=== PATIENT | male | born 1965 | race Caucasian/White ===

== ENCOUNTER 2020-09-19 11:22 | Outpatient (REF) | payer BC, SELFPAY ==
--- NOTE | 2020-09-19 11:31 | XR_ITS ---
EXAMINATION: XR CALCANEUS, RIGHT XR SHOULDER, RIGHT CLINICAL INFORMATION: Right shoulder pain. COMPARISON: None TECHNIQUE: 4 views right shoulder. 2 views right calcaneus. FINDINGS: RIGHT CALCANEUS: There is a small to moderate size calcaneal heel and a large right retrocalcaneal enthesophyte. There is dystrophic linear calcification along the posterior Achilles tendon. The ankle mortise and subtalar joints are normal. RIGHT SHOULDER: There is mild loss of AC joint space with periarticular spurring. There is lateral acromial spurring. Minimal inferior glenohumeral joints space periarticular spurring is seen. There is no acute fracture, loose bodies or soft tissue abnormality. XR/XR shoulder RT min 2V IMPRESSION: 1. Small calcaneal heel and moderate to large retrocalcaneal enthesophytes. Linear calcification along the posterior Achilles tendon likely from old injury. No acute fracture or dislocation seen. 2. Degenerative arthritic changes right AC joint and right glenohumeral joint space. No acute fracture or loose body seen.
--- NOTE | 2020-09-19 11:31 | XR_ITS ---
EXAMINATION: XR CALCANEUS, RIGHT XR SHOULDER, RIGHT CLINICAL INFORMATION: Right shoulder pain. COMPARISON: None TECHNIQUE: 4 views right shoulder. 2 views right calcaneus. FINDINGS: RIGHT CALCANEUS: There is a small to moderate size calcaneal heel and a large right retrocalcaneal enthesophyte. There is dystrophic linear calcification along the posterior Achilles tendon. The ankle mortise and subtalar joints are normal. RIGHT SHOULDER: There is mild loss of AC joint space with periarticular spurring. There is lateral acromial spurring. Minimal inferior glenohumeral joints space periarticular spurring is seen. There is no acute fracture, loose bodies or soft tissue abnormality. XR/XR calcaneus RT min 2V IMPRESSION: 1. Small calcaneal heel and moderate to large retrocalcaneal enthesophytes. Linear calcification along the posterior Achilles tendon likely from old injury. No acute fracture or dislocation seen. 2. Degenerative arthritic changes right AC joint and right glenohumeral joint space. No acute fracture or loose body seen.
== END 2020-09-19 11:23 | disposition home or self-care (01) ==
LOC: HO.XRAY 11:22
PROVIDERS: PCP Internal Medicine; Visit Provider Internal Medicine
DX: M25.511 Pain in right shoulder (principal); M79.671 Pain in right foot
CPT/HCPCS: 73030; 73650

== ENCOUNTER 2021-08-08 16:56 | Outpatient (REF) | payer BC, SELFPAY ==
[2021-08-08 17:10] LABS: MANUAL DIFF FLAG NO
[2021-08-08 17:16] LABS: Basophils Absolute Auto 0.1 X10*3/uL (0.0-0.2); Basophils Percent Auto 0.7 % (0-2); Eosinophils Absolute Auto 0.7 X10*3/uL (0.0-0.4); Eosinophils Percent Auto 8.9 % (0-4); Hematocrit 42.9 % (42.0-52.0); Hemoglobin 14.5 g/dl (14.0-18.0); Imm Gran Abs Auto 0.03 X10*3/uL (0.00-0.03); Imm Gran Pct Auto 0.4 % (0.0-0.4); Lymphocytes Absolute Auto 1.6 X10*3/uL (1.2-4.9); Lymphocytes Percent Auto 21.4 % (20-40); Mean Corpuscular HGB Conc 33.8 g/dl (31.0-36.0); Mean Corpuscular Hemoglobin 27.9 pg (27.0-33.0); Mean Corpuscular Volume 82.7 fL (80.0-98.0); Mean Platelet Volume 10.1 fL (9.4-12.4); Monocytes Absolute Auto 0.8 X10*3/uL (0.1-1.2); Monocytes Percent Auto 10.2 % (2-11); Neutrophils Absolute Auto 4.5 x10*3/uL (2.0-8.3); Neutrophils Percent Auto 58.4 % (45-73); Platelet Count 194 X10*3/uL (160-400); Red Blood Count 5.19 X10*6/uL (4.60-5.80); Red Cell Distribution Width 12.9 % (11.0-16.0); White Blood Count 7.7 X10*3/uL (4.8-10.8)
[2021-08-08 17:46] LABS: Anion Gap 12 (12-20); Blood Urea Nitrogen 16 mg/dL (9-16); Calcium 9.1 mg/dL (8.4-10.2); Carbon Dioxide 27 mmol/L (22-29); Chloride 105 mmol/L (96-108); Estimated Glomerular Filt Rate > 60; Glucose Random 77 mg/dL (60-115); Potassium 4.5 mmol/L (3.3-5.1); Sodium 139 mmol/L (135-145)
== END 2021-08-08 16:57 | disposition home or self-care (01) ==
LOC: HO.LAB 16:56
PROVIDERS: PCP Internal Medicine; Visit Provider Internal Medicine
DX: J33.9 Nasal polyp, unspecified (principal); R06.2 Wheezing
CPT/HCPCS: 36415; 80048; 85025

== ENCOUNTER 2022-07-29 11:50 | Outpatient (REF) | payer BC, SELFPAY ==
--- NOTE | ~2022-07-29 | XR_ITS ---
EXAMINATION: XR CHEST CLINICAL INFORMATION: Cough COMPARISON: Previous chest x-ray from 2019 TECHNIQUE: 2 views of the chest were obtained. FINDINGS: No significant abnormality is noted involving the heart, lungs, mediastinum, bony thorax or soft tissues. There are degenerative changes of the spine. XR/XR chest 2V IMPRESSION: No evidence for acute disease in the chest.
[2022-07-29 13:31] LABS: MANUAL DIFF FLAG NO
[2022-07-29 13:35] LABS: Basophils Percent Auto 0.6 % (0-2); Eosinophils Absolute Auto 0.7 X10*3/uL (0.0-0.4); Eosinophils Percent Auto 10.5 % (0-4); Imm Gran Abs Auto 0.03 X10*3/uL (0.00-0.03); Imm Gran Pct Auto 0.5 % (0.0-0.4); Lymphocytes Absolute Auto 0.9 X10*3/uL (1.2-4.9); Lymphocytes Percent Auto 13.3 % (20-40); Mean Corpuscular Volume 82.2 fL (80.0-98.0); Mean Platelet Volume 10.5 fL (9.4-12.4); Monocytes Absolute Auto 0.7 X10*3/uL (0.1-1.2); Neutrophils Absolute Auto 4.1 x10*3/uL (2.0-8.3); Neutrophils Percent Auto 64.1 % (45-73); Platelet Count 191 X10*3/uL (160-400); Red Blood Count 5.72 X10*6/uL (4.60-5.80); Red Cell Distribution Width 13.1 % (11.0-16.0); White Blood Count 6.5 X10*3/uL (4.8-10.8)
[2022-07-29 13:44] LABS: Alanine Aminotransferase 20 U/L (0-40); Albumin Level 4.7 g/dL (3.5-5.0); Alkaline Phosphatase 73 U/L (39-117); Anion Gap 15 (12-20); Aspartate Amino Transferase 16 U/L (5-37); Bilirubin Total 1.2 mg/dL (0.0-1.0); Blood Urea Nitrogen 13 mg/dL (9-16); Calcium 9.5 mg/dL (8.4-10.2); Carbon Dioxide 27 mmol/L (22-29); Chloride 101 mmol/L (96-108); Cholesterol 175 mg/dL; Estimated Glomerular Filt Rate > 60; Glucose Fasting 87 mg/dL (60-99); HDL Cholesterol 58 mg/dL; LDL Cholesterol Calculated 105 mg/dl; Potassium 4.6 mmol/L (3.3-5.1); Sodium 138 mmol/L (135-145); Triglycerides 62 mg/dL
[2022-07-29 14:06] LABS: Prostate Specific Antigen Scr 1.24 ng/mL (<0.05-4.0)
== END 2022-07-29 11:51 | disposition home or self-care (01) ==
LOC: HO.10HDL 11:50
PROVIDERS: Visit Provider Internal Medicine
DX: Z12.5 Encounter for screening for malignant neoplasm of prostate (principal); R05.9 Cough, unspecified; R06.2 Wheezing; R35.1 Nocturia
CPT/HCPCS: 36415; 71046; 80053; 80061; 84153; 85025

== ENCOUNTER 2022-08-23 10:35 | Outpatient (REF) | payer BC, SELFPAY ==
--- NOTE | 2022-08-23 | PFT_ITS ---
FLOWS: FEV1 75% of predicted at 3.07 L. FVC 80% of predicted at 4.30 L. FEV1 to FVC ratio of 0.71. Positive bronchodilator response. LUNG VOLUMES: Total lung capacity 77% of predicted at 5.91 L. Residual volume 90% of predicted at 2.16 L. Slow vital capacity 71% of predicted at 3.76 L. Expiratory reserve volume 45% of predicted at 0.74 L. Diffusion capacity is normal. IMPRESSION: Combined moderate obstructive and moderate restrictive ventilatory defect with positive bronchodilator response. Decreased expiratory reserve volume suggests extrathoracic restriction likely secondary to abdominal obesity. Douglas Lincoln MD AP/MODL / [id number]
== END 2022-08-23 10:36 | disposition home or self-care (01) ==
LOC: HO.RESP 10:35
PROVIDERS: PCP Internal Medicine; Visit Provider Internal Medicine
DX: R06.2 Wheezing (principal)
CPT/HCPCS: 94060; 94727; 94729

== ENCOUNTER 2023-03-07 12:26 | Day surgery (SDC) | payer BC, SELFPAY ==
--- NOTE | 2023-03-06 12:49 | HO.ANESPROP2 ---
Documented by User: Linh Kirk NP 03/06/23 12:51 HPI - Anesthesia Eval Consult details Narrative: 57yo M for Colonoscopy [facility] Past Medical History Medical History (Updated 03/06/23 @ 12:10 by Debora Vasquez RN) Nasal polyp Plantar fasciitis Tennis elbow Surgical History Surgical History (Updated 03/06/23 @ 12:10 by Debora Vasquez RN) H/O colonoscopy H/O elbow surgery H/O knee surgery H/O shoulder surgery Social History Social History Patient Tobacco Use Status: Current everyday Tobacco user Tobacco use type: Smokeless Tobacco Patient Interested in Nicotine Replacement: No Are you DNR?: No Advance Directives: No Advance Directives Information Provided: Yes Nutrition Risks: No Nutritional Risk Meds Allergies Allergy/AdvReac Type Severity Reaction Status Date / Time No Known Allergies Allergy Verified 03/06/23 12:08 Home Medications Medication Instructions Recorded Confirmed Last Taken Type budesonide-formoterol HFA 80 1 puff inhalation BID 03/06/23 03/06/23 Unknown History mcg-4.5 mcg/actuation aerosol inhaler (Symbicort) Exam Exam Date and Time: March 06, 2023 1249 Narrative Narrative: PFT 08/2022 FLOWS:? FEV1 75% of predicted at 3.07 L. ? FVC 80% of predicted at 4.30 L. ? FEV1 to FVC ratio of 0.71. ? Positive bronchodilator response. ?? LUNG VOLUMES:? Total lung capacity 77% of predicted at 5.91 L. ? Residual volume 90% of predicted at 2.16 L. ? Slow vital capacity 71% of predicted at 3.76 L. ? Expiratory reserve volume 45% of predicted at 0.74 L. ? Diffusion capacity is normal. ?? IMPRESSION:? Combined moderate obstructive and moderate restrictive ventilatory defect with positive bronchodilator response.? Decreased expiratory reserve volume suggests extrathoracic restriction likely secondary to abdominal obesity. Assessment and Plan Assessment Anesthesia Assessment: Chart Reviewed Documented by User: Rickey Mendosa MD 03/07/23 13:57 [facility] Past Medical History Medical History (Updated 03/06/23 @ 12:10 by Debora Vasquez RN) Nasal polyp Plantar fasciitis Tennis elbow Family History Family history of problems with anesthesia: No Surgical History Surgical History (Updated 03/06/23 @ 12:10 by Debora Vasquez RN) H/O colonoscopy H/O elbow surgery H/O knee surgery H/O shoulder surgery History of Problems with Anesthesia: No Social History Social History Patient Tobacco Use Status: Current everyday Tobacco user Tobacco use type: Smokeless Tobacco Patient Interested in Nicotine Replacement: No Are you DNR?: No Advance Directives: No Advance Directives Information Provided: Yes Nutrition Risks: No Nutritional Risk Meds Allergies Allergy/AdvReac Type Severity Reaction Status Date / Time No Known Allergies Allergy Verified 03/06/23 12:08 Home Medications Medication Instructions Recorded Confirmed Last Taken Type budesonide-formoterol HFA 80 1 puff inhalation BID 03/06/23 03/06/23 Unknown History mcg-4.5 mcg/actuation aerosol inhaler (Symbicort) Exam Airway Mallampati Class: III TM Dist: >3cm Neck ROM: Full Assessment and Plan Assessment Anesthesia Assessment: Anesthesia Plan Discussed Final Anesthetic Review Family History of Problems with Anesthesia: No History of Problems with Anesthesia: No NPO: Yes ASA Class: II Final Preanesthetic Review: No Changes in Pt Med Stat, Meds/Allgs Chart Reviewed, Consent Obtained/Reviewed and Anes Risks/Benef Reviewed Patient Risk: Low Procedure Risk: Low Anesthetic Plan Anesthetic Plan: MAC: Disposition: Standard PACU
[2023-03-07] MEDS: Lactated Ringers 1,000 ML 100 ML IVCONT (13:07)
[2023-03-07 13:27] VITALS: BMI 29.7
[2023-03-07 15:12] VITALS: BP 134/71; PULSE 68; RESP 16; TEMP 36.2; O2SAT 97
--- NOTE | 2023-03-07 15:13 | PM.OP ---
Brief Operative Note Date of Service: 03/07/23 Pre-op diagnosis: Screening Post-op diagnosis: other (Colon polyp) Procedure: Colonoscopy to the cecum and TI with bx/removal of polyp Surgeon: Blas Wilburn Anesthesia: MAC Was an Housing And Residence Life Director used for this Procedure?: No Estimated blood loss (mL): 2.0 Pathology: other (A. Polyp at 50cm) Condition: stable Disposition: PACU
[2023-03-07 15:32] VITALS: BP 115/86; PULSE 68; RESP 17; TEMP 36.7; O2SAT 98
--- NOTE | 2023-03-08 00:01 | OP_ITS ---
DATE OF SERVICE: 03/07/2023 SURGEON: Blas Wilburn MD INDICATIONS: The patient presents for evaluation of personal history of tubular adenoma of the colon, family history of colon cancer, and need for colorectal cancer screening. Full consent has been obtained from him for this, including risks of bleeding and perforation. PREOPERATIVE DIAGNOSIS: POSTOPERATIVE DIAGNOSIS: PROCEDURE PERFORMED: Colonoscopy to cecum and terminal ileum with biopsy and removal of polyp. ESTIMATED BLOOD LOSS: COMPLICATIONS: ANESTHESIA: Monitored anesthesia care. ASSISTANTS: SPECIMENS: PREOPERATIVE DIAGNOSES: Personal history of tubular adenoma of the colon, colorectal cancer screening, family history of colon cancer. POSTOPERATIVE DIAGNOSES: Personal history of tubular adenoma of the colon, colorectal cancer screening, family history of colon cancer, colon polyp, diverticulosis, and internal hemorrhoids. DESCRIPTION OF PROCEDURE: The patient was placed in the left lateral decubitus position. The digital rectal exam revealed no abnormalities. The Olympus video pediatric colonoscope was entered into the rectum and advanced easily to the cecum. Once in the cecum, I did identify normal-appearing cecal pouch with appendiceal orifice and a normal-appearing ileocecal valve. The terminal ileum was cannulated and appeared normal. The scope was withdrawn back in the colon. The entire cecum and ileocecal valve appeared normal. The scope was slowly withdrawn assessing all mucosal surfaces carefully. Preparation was excellent. At 50 cm, there was an approximately 3 or 4 mm polyp, which was biopsied and completely removed with cold biopsy forceps. I did not visualize any other polyps, colitis, nor angiodysplasia. There was a mild amount of sigmoid diverticulosis. In the rectum, scope was retroflexed visualizing internal hemorrhoids, but no other pathology. The rectal mucosa appeared normal. The scope was straightened and withdrawn from the patient. He tolerated the procedure well and was returned to the recovery area in stable condition. IMPRESSION: 1. Small colon polyp. 2. Diverticulosis. 3. Internal hemorrhoids. PLAN: The results of the biopsy will be checked. I would recommend a repeat colonoscopy in 5 years for further screening. He will otherwise see me on a p.r.n. basis. MD JAMEL Dhillon/CLARKE / [id number]
== END 2023-03-07 15:36 | disposition home or self-care (01) ==
PROVIDERS: PCP Internal Medicine; Visit Provider Internal Medicine
PROC: 0DJD8ZZ Inspection of Lower Intestinal Tract, Via Natural or Artificial Opening Endoscopic (ICD-10-PCS; CPT 45378; principal; 2023-03-07 15:10)
DX: Z12.11 Encounter for screening for malignant neoplasm of colon (principal); Z86.010 Personal history of colon polyps; Z80.0 Family history of malignant neoplasm of digestive organs; D12.5 Benign neoplasm of sigmoid colon; K57.30 Diverticulosis of large intestine without perforation or abscess without bleeding; K64.8 Other hemorrhoids; J45.909 Unspecified asthma, uncomplicated; M72.2 Plantar fascial fibromatosis; M77.12 Lateral epicondylitis, left elbow; Z79.51 Long term (current) use of inhaled steroids
CPT/HCPCS: 45380; 88305

== ENCOUNTER 2023-08-22 16:16 | Outpatient (REF) | payer BC, SELFPAY ==
--- NOTE | ~2023-08-22 | XR_ITS ---
EXAMINATION: XR KNEE, RIGHT CLINICAL INFORMATION: Pain. COMPARISON: None. TECHNIQUE: AP, lateral, tunnel, and sunrise views of the right knee. FINDINGS: No fracture or joint effusion. Alignment is anatomic. Joint spaces are maintained. No abnormal soft tissue calcification. A 1.5 x 0.7 cm exostosis is seen arising from the medial aspect of the proximal tibial metaphysis. XR/XR knee RT 4V IMPRESSION: 1. No fracture, dislocation or joint effusion is seen. 2. A small exostosis is seen arising from the medial aspect of the proximal tibial metaphysis. EXAMINATION: XR KNEE, LEFT CLINICAL INFORMATION: Pain COMPARISON: None available. TECHNIQUE: Four views of the left knee. FINDINGS: Bony alignment and mineralization are normal. No fracture or dislocation is seen. Alignment is anatomic. There is moderate asymmetric narrowing of the medial joint space. The lateral and patellofemoral joint space compartments are well-maintained. A 2.6 x 0.6 cm exostosis arises from the medial aspect of the proximal tibial metaphysis. No focal soft tissue swelling, gas or foreign body is seen. There are atherosclerotic calcifications. IMPRESSION: 1. No fracture, dislocation or joint effusion is seen. 2. A small exostosis is seen arising from the proximal tibial metaphysis.
--- NOTE | ~2023-08-22 | XR_ITS ---
EXAMINATION: XR KNEE, RIGHT CLINICAL INFORMATION: Pain. COMPARISON: None. TECHNIQUE: AP, lateral, tunnel, and sunrise views of the right knee. FINDINGS: No fracture or joint effusion. Alignment is anatomic. Joint spaces are maintained. No abnormal soft tissue calcification. A 1.5 x 0.7 cm exostosis is seen arising from the medial aspect of the proximal tibial metaphysis. XR/XR knee LT 4V IMPRESSION: 1. No fracture, dislocation or joint effusion is seen. 2. A small exostosis is seen arising from the medial aspect of the proximal tibial metaphysis. EXAMINATION: XR KNEE, LEFT CLINICAL INFORMATION: Pain COMPARISON: None available. TECHNIQUE: Four views of the left knee. FINDINGS: Bony alignment and mineralization are normal. No fracture or dislocation is seen. Alignment is anatomic. There is moderate asymmetric narrowing of the medial joint space. The lateral and patellofemoral joint space compartments are well-maintained. A 2.6 x 0.6 cm exostosis arises from the medial aspect of the proximal tibial metaphysis. No focal soft tissue swelling, gas or foreign body is seen. There are atherosclerotic calcifications. IMPRESSION: 1. No fracture, dislocation or joint effusion is seen. 2. A small exostosis is seen arising from the proximal tibial metaphysis.
== END 2023-08-22 16:17 | disposition home or self-care (01) ==
LOC: HO.XRAY 16:16
PROVIDERS: PCP Internal Medicine; Visit Provider Internal Medicine
DX: M25.562 Pain in left knee (principal); M25.561 Pain in right knee
CPT/HCPCS: 73564

== ENCOUNTER 2024-07-08 15:59 | Outpatient (REF) | payer BC, SELFPAY ==
--- NOTE | ~2024-07-08 | XR_ITS ---
EXAMINATION: XR CHEST CLINICAL INFORMATION: Cough, wheezing COMPARISON: Chest radiograph 07/29/2022 TECHNIQUE: 2 views of the chest were obtained. FINDINGS: The lungs are well-expanded. No focal consolidation. No pleural effusions or pneumothorax. The cardiomediastinal silhouette is within normal limits. No acute osseous abnormality. XR/XR chest 2V IMPRESSION: No acute pulmonary disease. Electronically signed by: Durga Wilkes MD 07/09/2024 08:25 AM EDT
[2024-07-08 16:13] LABS: MANUAL DIFF FLAG NO
[2024-07-08 17:09] LABS: Basophils Percent Auto 0.5 % (0-2); Eosinophils Absolute Auto 0.5 X10*3/uL (0.0-0.4); Eosinophils Percent Auto 5.5 % (0-4); Hematocrit 44.3 % (42.0-52.0); Hemoglobin 14.7 g/dl (14.0-18.0); Imm Gran Abs Auto 0.05 X10*3/uL (0.00-0.03); Imm Gran Pct Auto 0.6 % (0.0-0.4); Lymphocytes Absolute Auto 1.4 X10*3/uL (1.2-4.9); Lymphocytes Percent Auto 16.6 % (20-40); Mean Corpuscular HGB Conc 33.2 g/dl (31.0-36.0); Mean Corpuscular Hemoglobin 27.4 pg (27.0-33.0); Mean Corpuscular Volume 82.6 fL (80.0-98.0); Mean Platelet Volume 10.2 fL (9.4-12.4); Monocytes Absolute Auto 0.8 X10*3/uL (0.1-1.2); Monocytes Percent Auto 9.4 % (2-11); Neutrophils Absolute Auto 5.5 x10*3/uL (2.0-8.3); Neutrophils Percent Auto 67.4 % (45-73); Platelet Count 204 X10*3/uL (160-400); Red Blood Count 5.36 X10*6/uL (4.60-5.80); Red Cell Distribution Width 13.8 % (11.0-16.0); White Blood Count 8.1 X10*3/uL (4.8-10.8)
[2024-07-08 17:38] LABS: Alanine Aminotransferase 16 U/L (0-40); Albumin Level 4.2 g/dL (3.5-5.0); Alkaline Phosphatase 67 U/L (39-117); Anion Gap 13 (12-20); Aspartate Amino Transferase 15 U/L (5-37); Bilirubin Total 0.6 mg/dL (0.0-1.0); Blood Urea Nitrogen 14 mg/dL (9-16); C Reactive Protein 0.93 mg/dL (< or = 0.50); Calcium 9.6 mg/dL (8.4-10.2); Carbon Dioxide 29 mmol/L (22-29); Chloride 105 mmol/L (96-108); Estimated Glomerular Filt Rate > 60; Glucose Random 72 mg/dL (60-115); Potassium 4.3 mmol/L (3.3-5.1); Sodium 143 mmol/L (135-145); Total Protein 6.6 g/dL (6.5-8.0)
[2024-07-09 15:43] LABS: Alpha 1 Anti-trypsin 136 mg/dL (83-199)
== END 2024-07-08 16:00 | disposition home or self-care (01) ==
LOC: HO.LAB 15:59
PROVIDERS: PCP Internal Medicine; Visit Provider Internal Medicine
DX: R05.9 Cough, unspecified (principal); R06.2 Wheezing
CPT/HCPCS: 36415; 71046; 80053; 82103; 82550; 85025; 86140

== ENCOUNTER 2024-10-18 15:38 | Outpatient (REF) | payer BC, SELFPAY ==
[2024-10-18 15:53] LABS: MANUAL DIFF FLAG NO
[2024-10-18 16:02] LABS: Basophils Absolute Auto 0.1 X10*3/uL (0.0-0.2); Basophils Percent Auto 1.2 % (0-2); Eosinophils Percent Auto 10.3 % (0-4); Hematocrit 48.3 % (42.0-52.0); Hemoglobin 16.1 g/dl (14.0-18.0); Imm Gran Abs Auto 0.03 X10*3/uL (0.00-0.03); Imm Gran Pct Auto 0.3 % (0.0-0.4); Lymphocytes Absolute Auto 1.4 X10*3/uL (1.2-4.9); Lymphocytes Percent Auto 14.1 % (20-40); Mean Corpuscular HGB Conc 33.3 g/dl (31.0-36.0); Mean Corpuscular Hemoglobin 27.7 pg (27.0-33.0); Mean Corpuscular Volume 83.1 fL (80.0-98.0); Mean Platelet Volume 10.2 fL (9.4-12.4); Monocytes Absolute Auto 0.8 X10*3/uL (0.1-1.2); Monocytes Percent Auto 8.1 % (2-11); Neutrophils Absolute Auto 6.6 x10*3/uL (2.0-8.3); Platelet Count 227 X10*3/uL (160-400); Red Blood Count 5.81 X10*6/uL (4.60-5.80); Red Cell Distribution Width 13.2 % (11.0-16.0)
[2024-10-18 16:27] LABS: Anion Gap 10 (12-20); Blood Urea Nitrogen 19 mg/dL (9-16); Calcium 9.2 mg/dL (8.4-10.2); Carbon Dioxide 24 mmol/L (22-29); Chloride 110 mmol/L (96-108); Estimated Glomerular Filt Rate > 60; Glucose Random 72 mg/dL (60-115); Potassium 4.9 mmol/L (3.3-5.1); Sodium 139 mmol/L (135-145)
[2024-10-18 16:45] LABS: PSA,Total (Free>4and<10) 2.25 ng/mL (0.00-4.00)
--- OUTSIDE RECORDS SUMMARY | 2024-10-18 19:36 | XMS_ITS | Patient Health Record ---
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 Name Role Phone Jordin Pope MD Primary Care Provider Blas Lainez Unavailable [phone] ALLERGIES No Known Allergies REASON FOR REFERRAL No Information MEDICATIONS Medication SIG (Take, Route, Frequency, Duration) Notes Start Date End Date Status Symbicort 80-4.5 MCG/ACT Inhalation for 30 Active SOCIAL HISTORY Sex Assigned At : Social History Observation Description Sex Assigned At Unknown PROBLEMS Problem Type ICD Code Onset Dates Problem Status W/U Status Risk SNOMED Code Notes Problem Encounter for screening for malignant neoplasm of colon (Z12.11) Active confirmed 887496209 Problem Encounter for screening for malignant neoplasm of rectum (Z12.12) Active confirmed Screening fo r malignant neoplasm of rectum (029340224) Problem History of adenomatous polyp of colon (Z86.010) Active confirmed 143620232 Problem Family history of colon cancer (Z80.0) Active confirmed 332557000 Problem Preprocedural examination (Z01.818) Active confirmed 42547336 Problem Colon cancer screening (Z12.11) Active confirmed 477327439 Problem Pre-procedural examination (Z01.818) Active confirmed 692435697779960 Problem Diverticulosis of large intestine without perforation or abscess without bleeding (K57.30) Active confirmed Diverticul ar disease of colon (714247792) PLAN OF TREATMENT Future Test Test Name Order Date COLONOSCOPY 08/08/2016 COLONOSCOPY 01/28/2023 Insurance Providers Payer Name Payer Address Payer Phone Subscriber Number Group Number Insured Name Patient Relationship to Insured Coverage Start Date Coverage End Date [facility] [address] [place] [address] [phone] [id number] Self - patient is the insured MEDICAL (GENERAL) HISTORY Medical History History ICD Code Colonoscopy 12-21-2010---1 sma ll tubular adenoma removed, mild sigmoid diverticulosis and small internal hemorrhoids Denies MD,DM,CVA,Lung disease,renal dise ase Plantar fasciitis Tennis elbow --left--cortisone injectio n Colonoscopy 11/2016 with 2 small tubular adenomas removed Mild asthma and/or seasonal allergies Surgical History Surgery Date(Month/Year) Orthopedic--Right elbow, both shoulders. both knees Nasal polyps
== END 2024-10-18 15:39 | disposition home or self-care (01) ==
LOC: HO.LAB 15:38
PROVIDERS: PCP Internal Medicine; Visit Provider Internal Medicine
DX: J45.909 Unspecified asthma, uncomplicated (principal); N40.0 Benign prostatic hyperplasia without lower urinary tract symptoms; Z12.5 Encounter for screening for malignant neoplasm of prostate
CPT/HCPCS: 36415; 80048; 84153; 85025

== ENCOUNTER 2024-11-18 15:17 | Outpatient (AMB) | payer BC, SELFPAY ==
[2024-11-18 15:25] VITALS: BP 120/72; PULSE 100; O2SAT 95; BMI 32.1
--- NOTE | 2024-11-18 15:25 | A.OFFVIS_ITS ---
Vital Signs 11/18/24 15:25 Height 6 ft 1 in Weight 243 lb 9.773 oz BMI 32.1 BP 120/72 Blood Pressure Location Lt brachial Position Sitting Pulse 100 Pulse Source Pulse Oximeter Pulse Oximetry (%) 95 Oxygen Delivery Method Room Air Intake Visit Reasons: asthma Intake Note: pt is here as a new patient, a lot of coughing with phelgm difficulty breathing with exertion, and eating causes pressure in the chest area, all happening for a year and half. Sorting And Folding Supervisor Required: No Allergies No Known Allergies Allergy (Verified 11/18/24 15:33) Medication List - Last Reconciled 11/18/24 by Luis Henson MD albuterol sulfate 90 mcg/actuation (Ventolin HFA) 2 puffs inhalation Q4-6H PRN fluticasone propion-salmeterol 250-50 mcg/dose (Wixela Inhub) 1 inh inhalation BID tamsulosin 0.4 mg PO BEDTIME Do you need a note to return to daycare/school/sports/work: No HPI HPI asthma: Details: THIS 59 YEARS OLD GENTLEMAN IS HERE FOR THE 1ST TIME WITH HISTORY OF BRONCHIAL ASTHMA FOR THE LAST 2 YEARS OR SO. HE HAD PRESENTED ABOUT 2 YEARS AGO WITH SYMPTOMS OF TIGHT FEELING IN THE CHEST ON WALKING AND AFTER EATING. HAD A PULMONARY FUNCTION TEST ON 08/23/2022, WHICH SHOWED SIGNIFICANT OBSTRUCTIVE AIRWAY DISORDER BUT WITH ALMOST COMPLETE REVERSIBILITY AFTER BRONCHODILATOR THERAPY. THIS WAS CONSISTENT WITH ASTHMA OR ASTHMA/COPD. 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 HIS SYMPTOMS ARE WORSE AT THE START OF WINTER, IN SUMMER HE IS OKAY. HE DENIES ANY ATTACKS OF SNEEZING. ALSO DOES NOT HAVE MUCH LOUD WHEEZING, HIS ASTHMA IS MORE IN THE FORM OF BOUTS OF COUGH, SOMETIMES WAKES DURING THE NIGHT WHO WITH SHORTNESS OF BREATH AND HAS TO USE THE RESCUE INHALER. HE WAS PRESCRIBED SYMBICORT WHICH IS NOW CHANGED TO WIXELA 250-51 INHALATION B.I.D., BUT HAS NOT BEEN USING IT REGULARLY. HE ALSO DESCRIBES THAT AFTER EATING HE FEELS IF THE FOOD DID NOT GO DOWN INTO THE STOMACH, AND THEN HE GETS MORE SHORT OF BREATH. HE HAS NO DISTINCT SYMPTOMS OF GERD. HE TENDS TO BE CONSTIPATED. 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 [facility] Medical History Dysphagia Asthma Nasal polyp Tennis elbow Plantar fasciitis Surgical History H/O shoulder surgery H/O knee surgery H/O elbow surgery H/O colonoscopy Social History Patient Tobacco Use Status: Current everyday Tobacco user Tobacco use type: Smokeless Tobacco Review of Systems Const All systems reviewed & are unremarkable except as noted in HPI and below Eyes Reports no additional complaints ENT Reports no additional complaints, Reports dysphagia (DESCRIBES IF FOOD IS HELD UP, CAUSING PRESSURE IN THE CHEST.), Denies nasal congestion and Denies nasal discharge Card Denies chest pain, Denies irregular heart rhythm and Denies leg edema Resp Reports as per HPI GI Reports bloating (AFTER EATING ) and Reports dysphagia (DESCRIBES IF FOOD IS HELD UP, CAUSING PRESSURE IN THE CHEST.) Reports no additional complaints Musc Reports no additional complaints Skin/Breast Reports system reviewed and no additional complaints, except as documented Neuro Reports no additional complaints Psych Reports no additional complaints Endo Reports no additional complaints Geo/Lymph Reports no additional complaints Physical Exam Vital Signs: Last Vital Signs Pulse 100 11/18/24 15:25 BP 120/72 11/18/24 15:25 Pulse Ox 95 11/18/24 15:25 Oxygen Delivery Method Room Air 11/18/24 15:25 BMI result Body Mass Index 32.1 Const General: healthy appearing, comfortable, no acute distress, alert and awake Orientation/consciousness: patient oriented x3 HEENT Head: Yes normal to inspection General nose exam: No nasal polyps present and No nasal discharge present Face and sinus: Yes sinuses nontender Mouth: oropharynx normal Throat: Yes posterior oropharynx normal Eyes General: appearance normal, both eyes and all related structures Neck Neck: Yes normal visual inspection, Yes no lymphadenopathy, Yes trachea midline and Yes no JVD Thyroid: Thyroid normal Chest Chest palpation & inspection: normal inspection of the chest, normal palpation of entire chest wall and no tenderness Resp Other: PERCUSSION NOTE IS RESONANT, BREATH SOUNDS EQUAL ON BOTH SIDES. NO WHEEZES RHONCHI OR CREPITATIONS ARE HEARD Effort & Inspection: normal respiratory effort Auscultation: clear to auscultation bilaterally Cardio Palpation: normal PMI Rate: regular rate Rhythm: regular rhythm Heart sounds: no gallops and no murmurs Peripheral pulses: Peripheral pulses 2+ throughout GI Palpation (GI): Soft to palpation, nontender, No hepatosplenomegaly present and no masses Auscultation: normal bowel sounds Back/Spine/Pelvis Thoracic/Lumbar Spine: thoracic and lumbar spine normal to inspection Skin General skin exam: no rashes or lesions noted Neuro General: patient oriented x3 and no focal motor deficits Cranial nerves: Yes CN's II-XII intact bilaterally Extrem General: Yes normal to inspection, Yes no clubbing, cyanosis or edema and Yes no calf tenderness Psych Appearance: grossly normal and well kempt Speech and movement: Normal speech and movement present Results Reviewed Results Reviewed: PULMONARY FUNCTION TEST ON 08/23/2022 PREMED RESULTS INDICATED MODERATELY SEVERE OBSTRUCTIVE AIRWAY DISORDER. THERE WAS EXCELLENT RESPONSE TO BRONCHODILATOR THERAPY INDICATING ASTHMA/COPD SYNDROME. TLC 77 INDICATING MILD RESTRICTIVE LUNG DISORDER. AND DIFFUSION CAPACITY WAS NORMAL Assessment & Plan Assessment & Plan (1) Asthma: Comment: PATIENT SEEMS TO HAVE ALLERGIC BRONCHIAL ASTHMA WITH AN ELEMENT OF COPD. INCREASED SYMPTOMS IN EARLY WINTER, SUGGESTIVE OF ALLERGY TO DUST AND MITES. IT IS POSSIBLE THAT HE IS HAVING SOME INHALANTS AT WORK, TO WHICH HE IS SENSITIVE. Code(s): J45.909 - Unspecified asthma, uncomplicated Category: Medical Plan: AT THIS TIME I HAVE ASKED HIM TO USE WIXELA 250-51 INHALATION B.I.D. REGULARLY AND VENTOLIN 2 PUFFS Q 4-6 HOURS ONLY P.R.N.. CBC WITH DIFF AND IGE LEVEL ARE ORDERED PULMONARY FUNCTION TEST IS ORDERED (2) Dysphagia: Comment: HE HAS INCREASED SHORTNESS OF BREATH AFTER EATING, AND DESCRIBES IF FOOD IS HELD IN THE LOWER ESOPHAGUS, POSSIBILITY OF ACHALASIA NEEDS TO BE RULED OUT. Code(s): R13.10 - Dysphagia, unspecified Category: Medical Plan: ADVISED TO EAT IN SMALL PORTIONS. BARIUM SWALLOW IS ORDERED Orders: Orders Complete Blood Count Auto Diff Today J45.909 - Unspecified asthma, uncomplicated FL barium swallow Today R13.10 - Dysphagia, unspecified Immunoglobulin E Today J45.909 - Unspecified asthma, uncomplicated Coding Level of Care Code New Pt Level 4 (13719) Diagnoses Asthma J45.909 Dysphagia R13.10
--- OUTSIDE RECORDS SUMMARY | 2024-11-18 18:38 | XMS_ITS | Patient Health Record ---
Author Organization [facility] Address [address] [place] [address] Care Team Providers Care Staff Attorney Name Role Phone Jordin Pope MD Primary Care Provider Blas Lainez Unavailable [phone] ALLERGIES No Known Allergies REASON FOR REFERRAL No Information MEDICATIONS Medication SIG (Take, Route, Frequency, Duration) Notes Start Date End Date Status Symbicort 80-4.5 MCG/ACT Inhalation for 30 Active SOCIAL HISTORY Sex Assigned At : Social History Observation Description Sex Assigned At Unknown PROBLEMS Problem Type ICD Code Onset Dates Problem Status W/U Status Risk SNOMED Code Notes Problem Colon cancer screening (Z12.11) Active confirmed 439940808 Problem Encounter for screening for malignant neoplasm of colon (Z12.11) Active confirmed 890653311 Problem History of adenomatous polyp of colon (Z86.010) Active confirmed 724855528 Problem Diverticulosis of large intestine without perforation or abscess without bleeding (K57.30) Active confirmed Diverticul ar disease of colon (936448201) Problem Encounter for screening for malignant neoplasm of rectum (Z12.12) Active confirmed Screening fo r malignant neoplasm of rectum (053823016) Problem Preprocedural examination (Z01.818) Active confirmed 68481150 Problem Family history of colon cancer (Z80.0) Active confirmed 592816522 Problem Pre-procedural examination (Z01.818) Active confirmed [id number] PLAN OF TREATMENT Future Test Test Name Order Date COLONOSCOPY 08/08/2016 COLONOSCOPY 01/28/2023 Insurance Providers Payer Name Payer Address Payer Phone Subscriber Number Group Number Insured Name Patient Relationship to Insured Coverage Start Date Coverage End Date [facility] [address] [place] [address] [id number] Self - patient is the insured MEDICAL (GENERAL) HISTORY Medical History History ICD Code Colonoscopy 12-21-2010---1 sma ll tubular adenoma removed, mild sigmoid diverticulosis and small internal hemorrhoids Denies GA,DM,CVA,Lung disease,renal dise ase Plantar fasciitis Tennis elbow --left--cortisone injectio n Colonoscopy 11/2016 with 2 small tubular adenomas removed Mild asthma and/or seasonal allergies Surgical History Surgery Date(Month/Year) Orthopedic--Right elbow, both shoulders. both knees Nasal polyps
== END 2024-11-18 15:59 | disposition home or self-care (01) ==
PROVIDERS: PCP Internal Medicine; Visit Provider Internal Medicine
DX: J45.909 Unspecified asthma, uncomplicated (principal); R13.10 Dysphagia, unspecified
CPT/HCPCS: 99204

== ENCOUNTER 2024-11-18 15:17 | Outpatient (REF) | payer BC, SELFPAY ==
[2024-11-18 16:21] LABS: MANUAL DIFF FLAG NO
[2024-11-18 17:06] LABS: Basophils Absolute Auto 0.1 X10*3/uL (0.0-0.2); Basophils Percent Auto 0.7 % (0-2); Eosinophils Absolute Auto 0.8 X10*3/uL (0.0-0.4); Eosinophils Percent Auto 11.5 % (0-4); Hematocrit 45.5 % (42.0-52.0); Hemoglobin 15.4 g/dl (14.0-18.0); Imm Gran Abs Auto 0.03 X10*3/uL (0.00-0.03); Imm Gran Pct Auto 0.4 % (0.0-0.4); Lymphocytes Absolute Auto 1.2 X10*3/uL (1.2-4.9); Lymphocytes Percent Auto 17.4 % (20-40); Mean Corpuscular HGB Conc 33.8 g/dl (31.0-36.0); Mean Corpuscular Hemoglobin 28.2 pg (27.0-33.0); Mean Corpuscular Volume 83.2 fL (80.0-98.0); Mean Platelet Volume 10.3 fL (9.4-12.4); Monocytes Absolute Auto 0.7 X10*3/uL (0.1-1.2); Monocytes Percent Auto 10.2 % (2-11); Neutrophils Absolute Auto 4.1 x10*3/uL (2.0-8.3); Neutrophils Percent Auto 59.8 % (45-73); Platelet Count 206 X10*3/uL (160-400); Red Blood Count 5.47 X10*6/uL (4.60-5.80); Red Cell Distribution Width 13.3 % (11.0-16.0); White Blood Count 6.9 X10*3/uL (4.8-10.8)
[2024-11-19 08:48] LABS: Immunoglobulin E 141 kU/L (<OR=114)
== END 2024-11-18 15:18 | disposition home or self-care (01) ==
LOC: HO.LAB 15:17
PROVIDERS: PCP Internal Medicine; Visit Provider Internal Medicine
DX: J45.909 Unspecified asthma, uncomplicated (principal)
CPT/HCPCS: 36415; 82785; 85025

== ENCOUNTER 2024-11-30 08:44 | Outpatient (REF) | payer BC, SELFPAY ==
--- NOTE | 2024-11-30 08:48 | PFT_ITS ---
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 Decreased expiratory reserve volume suggests extrathoracic restriction likely secondary to abdominal obesity. MTDD
--- OUTSIDE RECORDS SUMMARY | 2024-11-30 09:33 | XMS_ITS | Patient Health Record ---
Author Organization [facility] Address [address] [place] [address] Care Team Providers Care Chief Engineer Drilling And Recovery Name Role Phone Jordin Pope MD Primary Care Provider Blas Lainez Unavailable [phone] Allergies No Known Allergies Reason For Referral No Information Medications Medication SIG (Take, Route, Frequency, Duration) Notes Start Date End Date Status Symbicort 80-4.5 MCG/ACT Inhalation for 30 Active Problems Problem Type SNOMED Code ICD Code Onset Dates Problem Status W/U Status Risk Notes Problem 210463267 Colon cancer screening (Z12.11) Active confirmed Problem 241882646 Encounter for screening for malignant neoplasm of colon (Z12.11) Active confirmed Problem 429016779 History of adenomatous polyp of colon (Z86.010) Active confirmed Problem Diverticular disease of colon (178130323) Diverticulosis of large intestine without perforation or abscess without bleeding (K57.30) Active confirmed Problem Screening for malignant neoplasm of rectum (306082252) Encounter for screening for malignant neoplasm of rectum (Z12.12) Active confirmed Problem 51613225 Preprocedural examination (Z01.818) Active confirmed Problem 220603351 Family history o f colon cancer (Z80.0) Active confirmed Problem 088508661048128 Pre-procedural examination (Z01.818) Active confirmed Plan Of Treatment Future Test Test Name Order Date COLONOSCOPY 08/08/2016 COLONOSCOPY 01/28/2023 Insurance Providers Payer Name Payer Address Payer Phone Subscriber Number Group Number Insured Name Patient Relationship to Insured Coverage Start Date Coverage End Date [facility] [address] [place] [address] [phone] [id number] SUJATHA FARAH Self - patient is the insured Medical (General) History Medical History History ICD Code Colonoscopy 12-21-2010---1 sma ll tubular adenoma removed, mild sigmoid diverticulosis and small internal hemorrhoids Denies [place],DM,CVA,Lung disease,renal dise ase Plantar fasciitis Tennis elbow --left--cortisone injectio n Colonoscopy 11/2016 with 2 small tubular adenomas removed Mild asthma and/or seasonal allergies Surgical History Surgery Date(Month/Year) Orthopedic--Right elbow, both shoulders. both knees Nasal polyps
[2024-11-30 09:42] VITALS: PULSE 75
== END 2024-11-30 08:45 | disposition home or self-care (01) ==
LOC: HO.RESP 08:44
PROVIDERS: PCP Internal Medicine; Visit Provider Internal Medicine
DX: J45.909 Unspecified asthma, uncomplicated (principal)
CPT/HCPCS: 94010; 94640; 94727; 94729

== ENCOUNTER → 2024-11-30 08:48 | Outpatient (BNV) | payer BC, SELFPAY | PROVIDERS: PCP Internal Medicine; Visit Provider Internal Medicine Pulmonary Disease | DX: J45.909 Unspecified asthma, uncomplicated (principal) | CPT/HCPCS: 94060; 94727; 94729 ==

== ENCOUNTER 2024-12-01 14:03 | Outpatient (AMB) | payer BC, SELFPAY ==
[2024-12-01 14:11] VITALS: BP 120/82; PULSE 87; O2SAT 97; BMI 33.2
--- NOTE | 2024-12-01 14:11 | A.OFFVIS_ITS ---
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 Since the last visit he has been using Wixela 250-51 inhalation b.i.d., and claims that he is feeling much better. He has had no spells of difficulty in swallowing, no spells of chest tightness, he can walk around without getting much shortness of breath. His pulmonary function test did show moderately severe obstructive disorder but with excellent response to bronchodilator therapy, C/W bronchial asthma. [facility] Medical History Dysphagia Asthma Nasal polyp Tennis elbow Plantar fasciitis Surgical History H/O shoulder surgery H/O knee surgery H/O elbow surgery H/O colonoscopy Social History Patient Tobacco Use Status: Current everyday Tobacco user Tobacco use type: Smokeless Tobacco Review of Systems Const All systems reviewed & are unremarkable except as noted in HPI and below Eyes Reports no additional complaints ENT Reports no additional complaints, Reports dysphagia (DESCRIBES IF FOOD IS HELD UP, CAUSING PRESSURE IN THE CHEST.), Denies nasal congestion and Denies na rose discharge Card Denies chest pain, Denies irregular heart rhythm and Denies leg edema Resp Reports as per HPI GI Reports bloating (AFTER EATING ) and Reports dysphagia (DESCRIBES IF FOOD IS HELD UP, CAUSING PRESSURE IN THE CHEST.) Reports no additional complaints Musc Reports no additional complaints Skin/Breast Reports system reviewed and no additional complaints, except as documented Neuro Reports no additional complaints Psych Reports no additional complaints Endo Reports no additional complaints Geo/Lymph Reports no additional complaints Physical Exam Vital Signs: Last Vital Signs Pulse 87 12/01/24 14:11 BP 120/82 12/01/24 14:11 Pulse Ox 97 12/01/24 14:11 Oxygen Delivery Method Room Air 12/01/24 14:11 BMI result Body Mass Index 33.2 Const General: healthy appearing, comfortable, no acute distress, alert and awake Orientation/consciousness: patient oriented x3 HEENT Head: Yes normal to inspection General nose exam: No nasal polyps present and No nasal discharge present Face and sinus: Yes sinuses nontender Mouth: oropharynx normal Throat: Yes posterior oropharynx normal Eyes General: appearance normal, both eyes and all related structures Neck Neck: Yes normal visual inspection, Yes no lymphadenopathy, Yes trachea midline and Yes no JVD Thyroid: Thyroid normal Chest Chest palpation & inspection: normal inspection of the chest, normal palpation of entire chest wall and no tenderness Resp Other: PERCUSSION NOTE IS RESONANT, BREATH SOUNDS EQUAL ON BOTH SIDES. NO WHEEZES RHONCHI OR CREPITATIONS ARE HEARD Effort & Inspection: normal respiratory effort Auscultation: clear to auscultation bilaterally Cardio Palpation: normal PMI Rate: regular rate Rhythm: regular rhythm Heart sounds: no gallops and no murmurs Peripheral pulses: Peripheral pulses 2+ throughout GI Palpation (GI): Soft to palpation, nontender, No hepatosplenomegaly present and no masses Auscultation: normal bowel sounds Back/Spine/Pelvis Thoracic/Lumbar Spine: thoracic and lumbar spine normal to inspection Skin General skin exam: no rashes or lesions noted Neuro General: patient oriented x3 and no focal motor deficits Cranial nerves: Yes CN's II-XII intact bilaterally Extrem General: Yes normal to inspection, Yes no clubbing, cyanosis or edema and Yes no calf tenderness Psych Appearance: grossly normal and well kempt Speech and movement: Normal speech and movement present Results Reviewed Results Reviewed: Pulmonary function test, consistent with moderately severe obstructive disorder and good response to bronchodilator therapy, C/W bronchial asthma CBC with diff has shown significant eosinophilia. IgE level, 141, slightly elevated Assessment & Plan Assessment & Plan (1) Asthma: Comment: PATIENT SEEMS TO HAVE ALLERGIC BRONCHIAL ASTHMA WITH AN ELEMENT OF COPD. NOTED ABOVE IN THE HISTORY HE HAS RESPONDED VERY WELL TO USE OF WIXELA. AND HIS USE OF ALBUTEROL IS MUCH LESS. Code(s): J45.909 - Unspecified asthma, uncomplicated Category: Medical Plan: EXPLAINED ABOUT THE RESULTS. EXPLAINED THAT HE HAS EOSINOPHILIA INDICATING ALLERGIC BRONCHIAL ASTHMA. PLAN TO START HIM ON MONTELUKAST 10 MG DAILY. AFTER A FEW WEEKS IF HIS ASTHMA IS UNDER CONTROL HE WAS TRY TO WEAN OF WIXELA. USE ALBUTEROL SPARINGLY ONLY FOR ACUTE SYMPTOMS. (2) Dysphagia: Comment: SINCE HE STARTED USING WIXELA TWICE A DAY REGULARLY HIS SYMPTOM OF DYSPHAGIA IS ALMOST GONE. HE HAS HAD NO FEELING OF FOOD STICKING IN THE THROAT. Code(s): R13.10 - Dysphagia, unspecified Category: Medical Plan: AT HIS REQUEST WE HAVE CANCELED BARIUM SWALLOW TEST. Coding Level of Care Code Est Pt Level 3 (37163) Diagnoses Asthma J45.909 Dysphagia R13.10
--- OUTSIDE RECORDS SUMMARY | 2024-12-01 16:39 | XMS_ITS | Patient Health Record ---
Author Organization [facility] Address [address] [place] [address] Care Team Providers Care Map Editor Name Role Phone Jordin Pope MD Primary Care Provider Blas Lainez Unavailable [phone] Allergies No Known Allergies Reason For Referral No Information Medications Medication SIG (Take, Route, Frequency, Duration) Notes Start Date End Date Status Symbicort 80-4.5 MCG/ACT Inhalation for 30 Active Problems Problem Type SNOMED Code ICD Code Onset Dates Problem Status W/U Status Risk Notes Problem 848743003 Colon cancer screening (Z12.11) Active confirmed Problem 836094251 Encounter for screening for malignant neoplasm of colon (Z12.11) Active confirmed Problem 883370910 History of adenomatous polyp of colon (Z86.010) Active confirmed Problem Diverticular disease of colon (229335804) Diverticulosis of large intestine without perforation or abscess without bleeding (K57.30) Active confirmed Problem Screening for malignant neoplasm of rectum (497205543) Encounter for screening for malignant neoplasm of rectum (Z12.12) Active confirmed Problem 86236965 Preprocedural examination (Z01.818) Active confirmed Problem 052166227 Family history o f colon cancer (Z80.0) Active confirmed Problem 768138050887658 Pre-procedural examination (Z01.818) Active confirmed Plan Of Treatment Future Test Test Name Order Date COLONOSCOPY 08/08/2016 COLONOSCOPY 01/28/2023 Insurance Providers Payer Name Payer Address Payer Phone Subscriber Number Group Number Insured Name Patient Relationship to Insured Coverage Start Date Coverage End Date [facility] [address] [place] [address] [phone] [id number] SUJATHA FARAH Self - patient is the insured Medical (General) History Medical History History ICD Code Colonoscopy 12-21-2010---1 sma ll tubular adenoma removed, mild sigmoid diverticulosis and small internal hemorrhoids Denies [place],DM,CVA,Lung disease,renal dise ase Plantar fasciitis Tennis elbow --left--cortisone injectio n Colonoscopy 11/2016 with 2 small tubular adenomas removed Mild asthma and/or seasonal allergies Surgical History Surgery Date(Month/Year) Orthopedic--Right elbow, both shoulders. both knees Nasal polyps
== END 2024-12-01 14:42 | disposition home or self-care (01) ==
LOC: HO.HPS 14:04
PROVIDERS: PCP Internal Medicine; Visit Provider Internal Medicine
DX: J45.909 Unspecified asthma, uncomplicated (principal); R13.10 Dysphagia, unspecified
CPT/HCPCS: 99213

== ENCOUNTER 2025-02-01 15:29 | Outpatient (AMB) | payer BC, SELFPAY ==
--- NOTE | 2025-02-01 15:40 | A.OFFVIS_ITS ---
Vital Signs 02/01/25 15:41 Height 6 ft 1 in Weight 246 lb 14.684 oz BMI 32.6 BP 122/64 Blood Pressure Location Lt brachial Position Sitting Pulse 91 Pulse Source Pulse Oximeter Pulse Oximetry (%) 96 Oxygen Delivery Method Room Air Intake Visit Reasons: Asthma Intake Note: pt is here for follow up and started singular and states he does have a congested nose. 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 WITH THE USE OF WIXELA 250-50 1 INHALATION B.I.D. AND MONTELUKAST 10 MG DAILY HIS ASTHMA IS WELL CONTROLLED. HE HARDLY NEEDS TO USE ALBUTEROL. NASAL CONGESTION CONTINUES WITH INTERMITTENT BLOCKAGE OF THE NOSE. HE DENIES SNORING AT NIGHT BUT BREATHES THROUGH THE MOUTH, AND MOUTH GETS DRY. HE HAS A LONGSTANDING HISTORY OF ALLERGIC RHINITIS HAS HAD NASAL POLYPECTOMIES IN THE PAST. HE DOES HAVE ELEVATED EOSINOPHIL COUNT WELL IGE LEVEL. HE CLAIMS THAT OVERALL HE IS DOING MUCH BETTER THAN BEFORE. [facility] Medical History (Updated 02/01/25 @ 16:08 by Luis Henson MD) Allergic rhinitis Dysphagia Asthma Nasal polyp Tennis elbow Plantar fasciitis Surgical History H/O shoulder surgery H/O knee surgery H/O elbow surgery H/O colonoscopy Social History Patient Tobacco Use Status: Current everyday Tobacco user Tobacco use type: Smokeless Tobacco Review of Systems Const All systems reviewed & are unremarkable except as noted in HPI and below Eyes Reports no additional complaints ENT Reports no additional complaints, Reports dysphagia (DESCRIBES IF FOOD IS HELD UP, CAUSING PRESSURE IN THE CHEST.), Denies nasal congestion and Denies nasal discharge Card Denies chest pain, Denies irregular heart rhythm and Denies leg edema Resp Reports as per HPI GI Reports bloating (AFTER EATING ) and Reports dysphagia (DESCRIBES IF FOOD IS HELD UP, CAUSING PRESSURE IN THE CHEST.) Reports no additional complaints Musc Reports no additional complaints Skin/Breast Reports system reviewed and no additional complaints, except as documented Neuro Reports no additional complaints Psych Reports no additional complaints Endo Reports no additional complaints Geo/Lymph Reports no additional complaints Physical Exam Vital Signs: Last Vital Signs Pulse 91 02/01/25 15:41 BP 122/64 02/01/25 15:41 Pulse Ox 96 02/01/25 15:41 Oxygen Delivery Method Room Air 02/01/25 15:41 BMI result Body Mass Index 32.6 Const General: healthy appearing, comfortable, no acute distress, alert and awake Orientation/consciousness: patient oriented x3 HEENT Head: Yes normal to inspection General nose exam: nasal polyps (THERE IS A SMALL NASAL POLYP IN THE LEFT NOSTRIL), No nasal discharge present and Other nasal findings present (MILD NASAL CONGESTION ESPECIALLY IN THE LEFT NOSTRIL) Face and sinus: Yes sinuses nontender Mouth: oropharynx normal Throat: Yes posterior oropharynx normal Eyes General: appearance normal, both eyes and all related structures Neck Neck: Yes normal visual inspection, Yes no lymphadenopathy, Yes trachea midline and Yes no JVD Thyroid: Thyroid normal Chest Chest palpation & inspection: normal inspection of the chest, normal palpation of entire chest wall and no tenderness Resp Other: PERCUSSION NOTE IS RESONANT, BREATH SOUNDS EQUAL ON BOTH SIDES. NO WHEEZES RHONCHI OR CREPITATIONS ARE HEARD Effort & Inspection: normal respiratory effort Auscultation: clear to auscultation bilaterally Cardio Palpation: normal PMI Rate: regular rate Rhythm: regular rhythm Heart sounds: no gallops and no murmurs Peripheral pulses: Peripheral pulses 2+ throughout GI Palpation (GI): Soft to palpation, nontender, No hepatosplenomegaly present and no masses Auscultation: normal bowel sounds Back/Spine/Pelvis Thoracic/Lumbar Spine: thoracic and lumbar spine normal to inspection Skin General skin exam: no rashes or lesions noted Neuro General: patient oriented x3 and no focal motor deficits Cranial nerves: Yes CN's II-XII intact bilaterally Extrem General: Yes normal to inspection, Yes no clubbing, cyanosis or edema and Yes no calf tenderness Psych Appearance: grossly normal and well kempt Speech and movement: Normal speech and movement present Assessment & Plan Assessment & Plan (1) Asthma: Comment: PATIENT HAS ALLERGIC BRONCHIAL ASTHMA WITH AN ELEMENT OF COPD. NOTED ABOVE IN THE HISTORY HE HAS RESPONDED VERY WELL TO USE OF WIXELA. AND HIS USE OF ALBUTEROL IS MUCH LESS. ADDITION OF MONTELUKAST 10 MG DAILY IS ALSO HELPING. Code(s): J45.909 - Unspecified asthma, uncomplicated Category: Medical Plan: CONTINUE TO USE WIXELA 250-51 INHALATION B.I.D., MONTELUKAST 10 MG DAILY , ALBUTEROL HFA 2 PUFFS Q 6 HOURS P.R.N. (2) Allergic rhinitis: Comment: HE HAS A LONGSTANDING HISTORY OF ALLERGIC RHINITIS. HE HAS PREVIOUS HISTORY OF NASAL POLYPENECTOMY . HE IS AGAIN HAVING NASAL CONGESTION AND ALTERNATING BLOCKAGE OF THE RIGHT OR LEFT NOSTRIL. THERE IS FINDING OF HIS SMALL NASAL POLYP IN THE LEFT NOSTRIL. Code(s): J30.9 - Allergic rhinitis, unspecified Category: Medical Plan: CONTINUE MONTELUKAST 10 MG DAILY FLONASE-52 SPRAY IN EACH NOSTRIL B.I.D.. USE REGULARLY LORATADINE 10 MG OR CETIRIZINE 10 MG ONCE A DAY P.R.N. PATIENT HAS SEEN THE ENT SPECIALIST IN THE PAST, BUT HE IS NOW RETIRING, AND IF NEEDED HE WILL HAVE TO MAKE APPOINTMENT WITH AN OTHER ENT SPECIALIST. Coding Level of Care Code Est Pt Level 3 (15860) Diagnoses Asthma J45.909 Allergic rhinitis J30.9
[2025-02-01 15:41] VITALS: BP 122/64; PULSE 91; O2SAT 96; BMI 32.6
--- OUTSIDE RECORDS SUMMARY | 2025-02-01 16:18 | XMS_ITS | Patient Health Record ---
Author Organization [facility] Address [address] [place] [address] Care Team Providers Care Pest Controller Assistant Name Role Phone Jordin Pope MD Primary Care Provider Blas Lainez Unavailable [phone] Allergies No Known Allergies Reason For Referral No Information Medications Medication SIG (Take, Route, Frequency, Duration) Notes Start Date End Date Status Symbicort 80-4.5 MCG/ACT Inhalation for 30 Active Problems Problem Type SNOMED Code ICD Code Onset Dates Problem Status W/U Status Risk Notes Problem 430891311 Colon cancer screening (Z12.11) Active confirmed Problem 176412586 Encounter for screening for malignant neoplasm of colon (Z12.11) Active confirmed Problem 298708824 History of adenomatous polyp of colon (Z86.010) Active confirmed Problem Diverticular disease of colon (290237964) Diverticulosis of large intestine without perforation or abscess without bleeding (K57.30) Active confirmed Problem Screening for malignant neoplasm of rectum (183761255) Encounter for screening for malignant neoplasm of rectum (Z12.12) Active confirmed Problem 11237333 Preprocedural examination (Z01.818) Active confirmed Problem 701418401 Family history o f colon cancer (Z80.0) Active confirmed Problem 328677616803960 Pre-procedural examination (Z01.818) Active confirmed Plan Of Treatment Future Test Test Name Order Date COLONOSCOPY 08/08/2016 COLONOSCOPY 01/28/2023 Insurance Providers Payer Name Payer Address Payer Phone Subscriber Number Group Number Insured Name Patient Relationship to Insured Coverage Start Date Coverage End Date [facility] [address] [place] [address] [id number] SUJATHA FARAH Self - patient is the insured Medical (General) History Medical History History ICD Code Colonoscopy 12-21-2010---1 sma ll tubular adenoma removed, mild sigmoid diverticulosis and small internal hemorrhoids Denies [place],DM,CVA,Lung disease,renal dise ase Plantar fasciitis Tennis elbow --left--cortisone injectio n Colonoscopy 11/2016 with 2 small tubular adenomas removed Mild asthma and/or seasonal allergies Surgical History Surgery Date(Month/Year) Orthopedic--Right elbow, both shoulders. both knees Nasal polyps
== END 2025-02-01 16:03 | disposition home or self-care (01) ==
LOC: HO.HPS 15:30
PROVIDERS: PCP Internal Medicine; Visit Provider Internal Medicine
DX: J45.909 Unspecified asthma, uncomplicated (principal); J30.9 Allergic rhinitis, unspecified
CPT/HCPCS: 99213

== ENCOUNTER 2025-06-21 15:49 | Outpatient (AMB) | payer BC, SELFPAY ==
[2025-06-21 15:55] VITALS: BP 130/72; PULSE 75; O2SAT 97; BMI 34.2
--- NOTE | 2025-06-21 15:55 | MHC.OFFVIS ---
Vital Signs 06/21/25 15:55 Height 6 ft 1 in Weight 259 lb 0.69 oz BMI 34.2 BP 130/72 Blood Pressure Location Lt brachial Position Sitting Pulse 75 Pulse Source Pulse Oximeter Pulse Oximetry (%) 97 Oxygen Delivery Method Room Air Intake Visit Reasons: asthma Intake Note: pt is here for follow up and states he feels like there is something pushing up on his lungs, he cannot get a full breath Lamination Machine Operator Required: No Sap Mobility Architect: Sap Mobility Architect offered & declined Allergies No Known Allergies Allergy (Verified 06/21/25 16:13) Medication List - Last Reconciled 06/21/25 by Luis Henson MD albuterol sulfate 90 mcg/actuation (Ventolin HFA) 2 puffs inhalation Q4-6H PRN fluticasone propion-salmeterol 250-50 mcg/dose (Wixela Inhub) 1 inh inhalation BID montelukast 10 mg PO BEDTIME tamsulosin 0.4 mg PO BEDTIME Do you need a note to return to daycare/school/sports/work: No HPI HPI asthma: Details: 59 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 HE STATES THAT SINCE HE IS USING THE CURRENT MEDICATIONS HIS ASTHMA HAS BEEN WELL CONTROLLED AND SIMILARLY HE IS NASAL CONGESTION IS ALSO DOWN TO MINIMAL. HE HAS TO USE THE RESCUE INHALER ONLY ONCE IN A WHILE. HIS FEELING THAT HIS LUNGS DO NOT EXPAND WELL, IS JUST A NONSPECIFIC SUBJECTIVE FEELING, MAY BE DUE TO PUTTING ON SOME WEIGHT. [facility] Medical History Allergic rhinitis Dysphagia Asthma Nasal polyp Tennis elbow Plantar fasciitis Surgical History H/O shoulder surgery H/O knee surgery H/O elbow surgery H/O colonoscopy Social History Patient Tobacco Use Status: Current everyday Tobacco user Tobacco use type: Smokeless Tobacco Review of Systems Const All systems reviewed & are unremarkable except as noted in HPI and below Eyes Reports no additional complaints ENT Reports no additional complaints, Reports dysphagia (DESCRIBES IF FOOD IS HELD UP, CAUSING PRESSURE IN THE CHEST.), Denies nasal congestion and Denies nasal discharge Card Denies chest pain, Denies irregular heart rhythm and Denies leg edema Resp Reports as per HPI GI Reports bloating (AFTER EATING ) and Reports dysphagia (DESCRIBES IF FOOD IS HELD UP, CAUSING PRESSURE IN THE CHEST.) Reports no additional complaints Musc Reports no additional complaints Skin/Breast Reports system reviewed and no additional complaints, except as documented Neuro Reports no additional complaints Psych Reports no additional complaints Endo Reports no additional complaints Geo/Lymph Reports no additional complaints Physical Exam Vital Signs: Last Vital Signs Pulse 75 06/21/25 15:55 BP 130/72 06/21/25 15:55 Pulse Ox 97 06/21/25 15:55 Oxygen Delivery Method Room Air 06/21/25 15:55 BMI result Body Mass Index 34.2 Const General: healthy appearing, comfortable, no acute distress, alert and awake Orientation/consciousness: patient oriented x3 HEENT Head: Yes normal to inspection General nose exam: nasal polyps (THERE IS A SMALL NASAL POLYP IN THE LEFT NOSTRIL), No nasal discharge present and Other nasal findings present (MILD NASAL CONGESTION ESPECIALLY IN THE LEFT NOSTRIL) Face and sinus: Yes sinuses nontender Mouth: oropharynx normal Throat: Yes posterior oropharynx normal Eyes General: appearance normal, both eyes and all related structures Neck Neck: Yes normal visual inspection, Yes no lymphadenopathy, Yes trachea midline and Yes no JVD Thyroid: Thyroid normal Chest Chest palpation & inspection: normal inspection of the chest, normal palpation of entire chest wall and no tenderness Resp Other: PERCUSSION NOTE IS RESONANT, BREATH SOUNDS EQUAL ON BOTH SIDES. NO WHEEZES RHONCHI OR CREPITATIONS ARE HEARD Effort & Inspection: normal respiratory effort Auscultation: clear to auscultation bilaterally Cardio Palpation: normal PMI Rate: regular rate Rhythm: regular rhythm Heart sounds: no gallops and no murmurs Peripheral pulses: Peripheral pulses 2+ throughout GI Palpation (GI): Soft to palpation, nontender, No hepatosplenomegaly present and no masses Auscultation: normal bowel sounds Back/Spine/Pelvis Thoracic/Lumbar Spine: thoracic and lumbar spine normal to inspection Skin General skin exam: no rashes or lesions noted Neuro General: patient oriented x3 and no focal motor deficits Cranial nerves: Yes CN's II-XII intact bilaterally Extrem General: Yes normal to inspection, Yes no clubbing, cyanosis or edema and Yes no calf tenderness Psych Appearance: grossly normal and well kempt Speech and movement: Normal speech and movement present Assessment & Plan Assessment & Plan (1) Allergic rhinitis: Comment: HE HAS A LONGSTANDING HISTORY OF ALLERGIC RHINITIS. HE HAS PREVIOUS HISTORY OF NASAL POLYPENECTOMY . HE IS AGAIN HAVING NASAL CONGESTION AND ALTERNATING BLOCKAGE OF THE RIGHT OR LEFT NOSTRIL. THERE IS FINDING OF HIS SMALL NASAL POLYP IN THE LEFT NOSTRIL. The symptoms are much improved since he is on the current medical regimen. Code(s): J30.9 - Allergic rhinitis, unspecified Category: Medical Plan: CONTINUE TO USE FLONASE 2 SPRAY IN EACH NOSTRIL DAILY. MONTELUKAST 10 MG DAILY (2) Asthma: Comment: HIS SYMPTOMS ARE MOSTLY CONTROLLED WITH THE USE OF CURRENT MEDICAL REGIMEN. HE HARDLY HAS ANY BOUTS OF COUGH OR WHEEZING. DENIES SHORTNESS OF BREATH ON EXERTION. Code(s): J45.909 - Unspecified asthma, uncomplicated Category: Medical Plan: CONTINUE WIXELA 250-51 INHALATION B.I.D., AND USE ALBUTEROL HFA 2 PUFFS Q 6 HOURS P.R.N. Medications: Changed From fluticasone propion-salmeterol 250-50 mcg/dose (Wixela Inhub) 1 inh inhalation BID To fluticasone propion-salmeterol 250-50 mcg/dose (Wixela Inhub) 1 inh inhalation BID 60 ea 5RF ASTHMA 30 days Coding Level of Care Code Est Pt Level 3 (23542) Diagnoses Allergic rhinitis J30.9 Asthma J45.909
--- OUTSIDE RECORDS SUMMARY | 2025-06-21 16:59 | XMS_ITS | Patient Health Record ---
Author Organization [facility] Address [address] [place] [address] Care Team Providers Care Pattern Gater Name Role Phone Toshia (RETIRED) Jordin AGUSTIN Primary Care Provide r Unavailable Blas Wilburn Unavailable [phone] Allergies No Known Allergies Reason For Referral No Information Medications Medication SIG (Take, Route, Frequency, Duration) Notes Start Date End Date Status Symbicort 80-4.5 MCG/ACT Inhalation for 30 Active Problems Problem Type SNOMED Code ICD Code Onset Dates Problem Status W/U Status Risk Notes Problem 145876650 Colon cancer screening (Z12.11) Active confirmed Problem 270950497 Encounter for screening for malignant neoplasm of colon (Z12.11) Active confirmed Problem 896004662 History of adenomatous polyp of colon (Z86.010) Active confirmed Problem Diverticular disease of colon (117990100) Diverticulosis of large intestine without perforation or abscess without bleeding (K57.30) Active confirmed Problem Screening for malignant neoplasm of rectum (340650667) Encounter for screening for malignant neoplasm of rectum (Z12.12) Active confirmed Problem 86674172 Preprocedural examination (Z01.818) Active confirmed Problem 316715723 Family history o f colon cancer (Z80.0) Active confirmed Problem 197440685716332 Pre-procedural examination (Z01.818) Active confirmed Plan Of Treatment Future Test Test Name Order Date COLONOSCOPY 08/08/2016 COLONOSCOPY 01/28/2023 Insurance Providers Payer Name Payer Address Payer Phone Subscriber Number Group Number Insured Name Patient Relationship to Insured Coverage Start Date Coverage End Date [employer] [facility] [address] [place] [address] [id number] SUJATHA FARAH Self - patient is the insured Medical (General) History Medical History History ICD Code Colonoscopy 12-21-2010---1 sma ll tubular adenoma removed, mild sigmoid diverticulosis and small internal hemorrhoids Denies [place],DM,CVA,Lung disease,renal dise ase Plantar fasciitis Tennis elbow --left--cortisone injectio n Colonoscopy 11/2016 with 2 small tubular adenomas removed Mild asthma and/or seasonal allergies Surgical History Surgery Date(Month/Year) Orthopedic--Right elbow, both shoulders. both knees Nasal polyps
== END 2025-06-21 16:12 | disposition home or self-care (01) ==
LOC: HO.HPS 15:49
PROVIDERS: PCP Internal Medicine; Visit Provider Internal Medicine
DX: J30.9 Allergic rhinitis, unspecified (principal); J45.909 Unspecified asthma, uncomplicated
CPT/HCPCS: 99213